=== PATIENT | male | born 1960 | race Caucasian/White ===

== ENCOUNTER 2017-03-02 07:04 | Emergency (ER) | payer BC ==
[2017-03-02 07:16] VITALS: BP 149/91
[2017-03-02] MEDS ORDERED: Tetracaine 0.5% OPTH.SOL 4 ML* 1 DROP BTL ONE (07:22)
[2017-03-02] MEDS ORDERED: Fluorescein Sodium TOPICAL* 1 MG TEST OPHTHALMIC ONE (07:23)
--- NOTE | 2017-03-02 07:43 | UC ---
Danial Castro Thomas, scribed for Coretta Gallagher MD on 03/02/17 at 0724 . Eye Complaint HPI - HPI Summary HPI Summary: The pt is a 57 y/o M presenting to Urgent Care c/o right eye pain after it was scratched by a branch last night. The pain is concentrated to the right side of his right eye. The eye appears red. The pain is constant but much less intense than last night. The pain is rated 1/10. The pain improved somewhat since last night. Patient denies foreign body sensation today although he did have some foreign body sensation last night. He denies rubbing the eye. The pain is not aggravated by light or extraocular movement. The patient has treated the pain with eyedrops [employer]CH[employer]ICIAN. Pt additionally c/o some eye drainage (more yesterday than today). He does not wear contacts. Patient is not immunocompromised. The patient is not a current smoker. 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 Pt last Td2011 per PCP office. Patients medication reviewed this visit. - History of Current Complaint Chief Complaint: UCEye Stated Complaint: EYE COMPLAINT Time Seen by Provider: 03/02/17 07:08 Hx Obtained From: Patient Onset/Duration: Lasting Days - 1, Still Present Timing: Constant Severity Currently: Mild Pain Intensity: 1 Pain Scale Used: 0-10 Numeric Location of Injury: Other - Right side of conjunctiva of right eye Character: Foreign Body Sensation - some yesterday, although none today Alleviating Factor(s): Nothing Associated Signs And Symptoms: Positive: Drainage (Clear) - more drainage yesterday than today. Negative: Fever Related History: Other - Suspected scratch by branch - Allergies/Home Medications Allergies/Adverse Reactions: Allergies Allergy/AdvReac Type Severity Reaction Status Date / Time Penicillins Allergy Unknown Verified 03/02/17 07:16 Reaction Details Home Medications: Home Medications Acetaminophen [Tylenol] 325 mg PO Q6H PRN 03/02/17 [History Confirmed 03/02/17] PMH/Surg Hx/FS Hx/Imm Hx Previously Healthy: No - Sinusitis, chronic back pain - Surgical History Surgical History: Yes Surgery Procedure, Year, and Place: wrist surgery - Family History Known Family History: Positive: Hypertension Negative: Diabetes - Social History Occupation: Employed Full-time Lives: With Family Alcohol Use: Occasionally Substance Use Type: None Smoking Status (MU): Never Smoked Tobacco - Immunization History Most Recent Influenza Vaccination: fall 2016 Review of Systems Constitutional: Other - NEGATIVE: fever Eyes: Drainage - some, Other - Right eye pain Is Patient Immunocompromised?: No All Other Systems Reviewed And Are Negative: Yes Physical Exam Triage Information Reviewed: Yes Appearance: Well-Appearing, No Pain Distress, Well-Nourished Vital Signs: Initial Vital Signs Temp 97.7 F 03/02/17 07:12 Pulse 71 03/02/17 07:12 Resp 16 03/02/17 07:12 BP 149/91 03/02/17 07:12 Pulse Ox 100 03/02/17 07:12 Vital Signs Reviewed: Yes Eyes: Positive: Other: - injected conjunctive right lateral aspect eye ADEEL EOM intact and full no photophobia crisp fundoscopic exam no discharge After consent, appliced tetracine fluorscene dye uptake linear pattern, right lateral aspect eye from mid iris area laterally No f.b appreciated ENT Exam: Normal ENT: Positive: Normal ENT inspection, Hearing grossly normal, Pharynx normal, TMs normal Neck exam: Normal Neck: Positive: Supple, Nontender, No Lymphadenopathy Respiratory Exam: Normal Respiratory: Positive: Chest non-tender, Lungs clear, Normal breath sounds, No respiratory distress, No accessory muscle use Cardiovascular Exam: Normal Cardiovascular: Positive: RRR, No Murmur Abdominal Exam: Normal Abdomen Description: Positive: Nontender, No Organomegaly, Soft Bowel Sounds: Positive: Present Musculoskeletal Exam: Normal Neurological Exam: Normal Neurological: Positive: Alert Psychological Exam: Normal Psychological: Positive: Normal Response To Family Skin Exam: Normal Eye Complaint Course/Dx - Course Course Of Treatment: Blood pressure noted and patient informed of follow up with PCP. The patient is a 57 year old male complaining of right eye pain after it was scratched by a branch last night. Pt with linear right sided lateral corneal abraison. start polytrim. update tdap. f/u with ophtho. return precautions discussed. pt comfortable and in agreement with plan - Differential Dx/Diagnosis Provider Diagnoses: corneal abraison Discharge - Discharge Plan Condition: Stable Disposition: HOME Prescriptions: Polymyx/Trimethoprim OPTH* [Polytrim OPHTH*] 2 drop RIGHT EYE Q6HR #1 btl Patient Education Materials: Diphtheria/Pertussis/Tetanus Vaccine (By injection ), Corneal Abrasion (ED) Referrals: Gerson Delvalle MD [Primary Care Provider] - Additional Instructions: - apply eye drops to your right eye - 2 drops every 6 hours for 5 days. - Okay to alternate ibuprofen (Advil, Motrin) and tylenol every 3 hours for pain or fever. Take with food. - If you develop sensitivity to light, it is recommended you try sunglasses. If needed, you may purchase and use an eye patch - Contact your insulation inspector tomorrow to schedule a recheck of your eye tomorrow or Wed. - Contact your eye doctor, return here, or go to the emergency department with questions or concerns -- you have also been given a tetanus booster today. Your arm will likely be sore tomorrow- this is normal - okay to take Motrin for this discomfort as well The documentation as recorded by the Danial baig Thomas accurately reflects the service I personally performed and the decisions made by me, Coretta Gallagher MD.
[2017-03-02] MEDS ORDERED: Polymyx/Trimethoprim OPTH* 10 ML BTL RIGHT EYE ONE (08:01)
[2017-03-02] MEDS ORDERED: Tetan/Diph/Pertus SYR(Tdap)* 0.5 ML SYR(BOOSTRIX) use SYR IM ONE (08:03)
== END 2017-03-02 08:20 | disposition home or self-care (01) ==
LOC: UCEAST 07:04
DX: S05.01XA Injury of conjunctiva and corneal abrasion without foreign body, right eye, initial encounter (principal); X58.XXXA Exposure to other specified factors, initial encounter; Y92.9 Unspecified place or not applicable
CPT/HCPCS: 90471; 90715; 99213; A9270-GY; G0463

== ENCOUNTER 2022-10-18 08:35 | Observation (INO) ==
[2022-10-18 09:44] LABS: Hematocrit 40.9 % (38-53); Hemoglobin 14.4 g/dL (13.2-16.3); Mean Corpuscular Hemoglobin 30.6 pg (27-33); Mean Corpuscular Hgb Conc 35.2 g/dL (31-36); Mean Platelet Volume 8.9 fL (7.5-11.2); Platelet Count 40 10^3/uL (150-450); Red Cell Distribution Width 12.9 % (12-17); White Blood Count 2.5 10^3/uL (3.6-10.2)
[2022-10-18 09:53] LABS: Albumin 3.6 g/dL (3.2-5.2); Albumin/Globulin Ratio 1.1 (1-3); Calcium 9.1 mg/dL (8.6-10.3); Creatinine, Serum 0.86 mg/dL (0.67-1.17); Globulin 3.2 g/dL (2-4); Potassium 3.4 mmol/L (3.5-5.0); Total Bilirubin 1.4 mg/dL (0.2-1.0); Total Protein 6.8 g/dL (6.4-8.9); eGFR CKD-EPI 97.9 (>60)
[2022-10-18 10:24] LABS: RBC Morphology Normal (Normal)
[2022-10-18 10:25] LABS: ABS Lymphocytes 0.3 10^3/uL (1.0-4.8); ABS Monocytes 0.4 10^3/uL (0.0-1.1); ABS Neutrophils 1.8 10^3/uL (1.5-7.6); ABS Nucleated RBC 0.01 10^3/ul; Lymphocyte % 12.1 %; Nucleated Red Blood Cells % 0.4 /100 WBC (0.0-0.4)
[2022-10-18] MEDS ORDERED: Azithromycin 500 mg/250 ml NS 500 MG/250 ML BAG IVPB ONE (10:32)
[2022-10-18] MEDS ORDERED: NS 0.9% 1000 ml BAG 1,000 ML IV ONE (10:33)
[2022-10-18] MEDS ORDERED: Ondansetron 4 mg VIAL 2 MG/ML 2 ml VIAL IV ONE (11:04)
[2022-10-18 11:28] LABS: RBC Parasite Smear No Parasites Seen (No Parasite)
[2022-10-18] MEDS ORDERED: Lactated Ringers 1000 ml BAG 1,000 ML IV ONE (12:56)
[2022-10-18] MEDS: DOXYcycline 100 MG in NS 0.9% 250 ml 250 ML IVPB ONE ×2 (13:05→15:33)
[2022-10-18] MEDS ORDERED: Albuterol HFA INHALER 8 gm MDI INH PRN (16:48)
[2022-10-18] MEDS ORDERED: Pravastatin 20 mg TAB (NF) PO SCH (21:00)
[2022-10-19] MEDS: DOXYcycline 100 MG in NS 0.9% 250 ml 250 ML IVPB SCH ×2 (01:32→12:15)
[2022-10-19 06:30] LABS: Albumin 2.8 g/dL (3.2-5.2); Albumin/Globulin Ratio 1.1 (1-3); Calcium 8.5 mg/dL (8.6-10.3); Creatinine, Serum 0.71 mg/dL (0.67-1.17); Globulin 2.6 g/dL (2-4); Magnesium 2.2 mg/dL (1.9-2.7); Potassium 3.7 mmol/L (3.5-5.0); Total Bilirubin 0.6 mg/dL (0.2-1.0); Total Protein 5.4 g/dL (6.4-8.9); eGFR CKD-EPI 103.7 (>60)
[2022-10-19 06:42] LABS: Hematocrit 35.3 % (38-53); Hemoglobin 12.3 g/dL (13.2-16.3); Mean Corpuscular Hemoglobin 30.9 pg (27-33); Mean Corpuscular Hgb Conc 34.9 g/dL (31-36); Mean Corpuscular Volume 88.7 fL (80-97); Platelet Count 41 10^3/uL (150-450); Red Blood Count 3.98 10^6/uL (4.06-5.63); Red Cell Distribution Width 13.1 % (12-17); White Blood Count 2.7 10^3/uL (3.6-10.2)
[2022-10-19 06:49] LABS: RBC Morphology Normal (Normal)
[2022-10-19 06:52] LABS: ABS Lymphocytes 0.5 10^3/uL (1.0-4.8); ABS Monocytes 1.4 10^3/uL (0.0-1.1); ABS Neutrophils 0.7 10^3/uL (1.5-7.6); ABS Nucleated RBC 0.01 10^3/ul; Eosinophil % 0.3 %; Lymphocyte % 19.8 %; Nucleated Red Blood Cells % 0.4 /100 WBC (0.0-0.4)
[2022-10-19 10:10] VITALS: BP 102/68
[2022-10-19] MEDS ORDERED: Mometasone 220 MCG MDI INH SCH (19:00)
[2022-10-21 18:39] LABS: Anaplasma phagocytophilum Positive (Negative); B. miyamotoi PCR, B Negative (Negative); Babesia divergens/MO-1 Negative (Negative); Babesia ducani Negative (Negative); Ehrlichia chaffeensis Negative (Negative); Ehrlichia ewingii/canis Negative (Negative); Ehrlichia muris eauclairensis Negative (Negative)
== END 2022-10-19 15:05 | disposition home or self-care (01) ==
LOC: EDHOLD 08:35 → ED 08:35 → MED 17:20
PROVIDERS: ADMIT Internal Medicine; ATTEND Internal Medicine